=== PATIENT | male | born 1995 | race Caucasian/White ===

== ENCOUNTER 2017-04-08 20:20 | Inpatient (IN) | payer MEDICAID ==
[~2017-04-08] VITALS: Ht 175.3 cm; Wt 63.2 kg
[2017-04-08 21:04] LABS: BASOPHILS % (AUTO) 0.8 % (0.0-2.0); EOSINOPHILS % (AUTO) 2.1 % (1.0-6.0); HEMATOCRIT 38.3 % (41-53); HEMOGLOBIN 12.9 g/dL (13.5-17.5); LYMPHOCYTES # (AUTO) 4.1 K/uL (1.0-4.8); LYMPHOCYTES % (AUTO) 54.5 % (22.0-44.0); MEAN CORPUSCULAR HEMOGLOBIN 29.3 pg (26.0-34.0); MEAN CORPUSCULAR HGB CONC 33.5 G/dL (31.0-37.0); MEAN CORPUSCULAR VOLUME 87 fL (80-100); MONOCYTES # (AUTO) 0.6 K/uL (0.1-1.0); MONOCYTES % (AUTO) 7.6 % (2.0-9.0); NEUTROPHILS # (AUTO) 2.6 K/uL (1.8-7.7); PLATELET COUNT (AUTO) 199 K/uL (150-450); RED BLOOD CELL COUNT(AUTO) 4.38 MIL/uL (4.50-5.90); RED CELL DISTRIBUTION WIDTH 14.6 % (11.5-14.5); WHITE BLOOD COUNT (AUTO) 7.5 K/uL (4.5-11.0)
[2017-04-08 21:11] LABS: ANION GAP 13 mmol/L (8-16); CALCIUM, TOTAL 8.4 mg/dL (8.8-10.5); CARBON DIOXIDE 24 mmol/L (22-29); CHLORIDE 107 mmol/L (98-107); CREATININE 1.01 mg/dL (0.60-1.30); GLOMERULAR FILTR. RATE CALC > 60 mL/min (>60); POTASSIUM 3.8 mmol/L (3.5-5.1); SODIUM SERUM 144 mmol/L (136-145); UREA NITROGEN, BLOOD 19 mg/dL (7-18)
[2017-04-08 21:16] LABS: ALANINE AMINOTRANSFERASE 59 U/L (12-78); ALBUMIN 4.4 g/dL (3.4-5.0); ASPARTATE AMINOTRANSFERASE 77 U/L (15-37); BILIRUBIN,TOTAL 0.4 mg/dL (0.1-1.0); TOTAL PROTEIN, SERUM 7.8 g/dL (6.4-8.2)
[2017-04-08] MEDS ORDERED: ZOLPIDEM TARTRATE 10 MG TABLET PO PRN (21:30)
[2017-04-08] MEDS ORDERED: LORazepam 2 MG TABLET PO PRN (21:30)
[2017-04-08] MEDS ORDERED: HALOPERIDOL 5 MG TABLET PO PRN (21:30)
[2017-04-09 06:57] LABS: CHOL/HDL RATIO 2.4 (4.2-7.3)
[2017-04-09 18:12] VITALS: BP 120/69
[2017-04-09] MEDS ORDERED: PNEUMOCOCCAL VACCINE POLYVALENT 0.5 ML VIAL [PPSV23] IM ONE (20:45)
[2017-04-10 06:05] VITALS: BP 125/60
[2017-04-10] MEDS: NICOTINE 14 MG/24 HOUR PATCH TD SCH (08:30)
[2017-04-10 08:54] VITALS: BP 127/79
[2017-04-10 16:12] VITALS: BP 118/66
[2017-04-10] MEDS: RisperiDONE 1 MG TABLET PO SCH (16:41)
[2017-04-10] MEDS ORDERED: IBUPROFEN 400 MG TABLET PO PRN (21:00)
[2017-04-10] MEDS ORDERED: ACETAMINOPHEN 325 MG TABLET PO PRN (21:00)
[2017-04-11 06:31] VITALS: BP 113/61
[2017-04-11 08:25] LABS: HEMOGLOBIN A1C 5.4 % (4.5-6.2)
[2017-04-11 08:43] VITALS: BP 116/71
[2017-04-11 08:45] LABS: CHOL/HDL RATIO 2.2 (4.2-7.3); THYROID STIMULATING HORMONE 1.93 uIU/mL (0.36-3.74)
[2017-04-11] MEDS: RisperiDONE 1 MG TABLET PO SCH ×2 (09:22→17:01)
[2017-04-11] MEDS: NICOTINE 14 MG/24 HOUR PATCH TD SCH (09:22)
[2017-04-11 16:16] VITALS: BP 120/73
[2017-04-12 00:53] VITALS: BP 120/65
[2017-04-12 08:38] VITALS: BP 116/60
[2017-04-12] MEDS: RisperiDONE 1 MG TABLET PO SCH ×2 (08:47→16:14)
[2017-04-12] MEDS: NICOTINE 14 MG/24 HOUR PATCH TD SCH (08:47)
[2017-04-12 16:00] VITALS: BP 128/86
[2017-04-13 06:39] VITALS: BP 116/60
[2017-04-13] MEDS: NICOTINE 14 MG/24 HOUR PATCH TD SCH (08:28)
[2017-04-13] MEDS: RisperiDONE 1 MG TABLET PO SCH (08:28)
[2017-04-13 08:52] VITALS: BP 114/56
[2017-04-13] MEDS ORDERED: RISP1 PO (12:08)
== END 2017-04-13 13:30 | disposition home or self-care (01) | DRG 750 ==
LOC: EMS 20:23 → B2S 04-09 15:41
PROVIDERS: ADMIT Psychiatry & Neurology Psychiatry; ATTEND Psychiatry & Neurology Psychiatry
DX: F20.0 Paranoid schizophrenia (principal); R45.851 Suicidal ideations; Z78.1 Physical restraint status; D64.9 Anemia, unspecified; F10.129 Alcohol abuse with intoxication, unspecified; Y90.6 Blood alcohol level of 120-199 mg/100 ml; F17.200 Nicotine dependence, unspecified, uncomplicated; F15.10 Other stimulant abuse, uncomplicated
CPT/HCPCS: 83036; 84443; 99291; G0480